=== PATIENT | female | born 1975 | race Caucasian/White ===

== ENCOUNTER → 2018-01-21 | Outpatient (CLI) | payer OTHER | LOC: MC.RAD 15:57 | DX: Z12.31 Encounter for screening mammogram for malignant neoplasm of breast (principal) ==

== ENCOUNTER → 2019-01-26 | Outpatient (CLI) | payer OTHER | LOC: COL.RAD 07:02 | DX: R10.9 Unspecified abdominal pain (principal); R11.0 Nausea; R19.7 Diarrhea, unspecified; R19.5 Other fecal abnormalities; R14.0 Abdominal distension (gaseous); R68.81 Early satiety ==

== ENCOUNTER → 2019-02-10 | Outpatient (CLI) | payer OTHER | LOC: MC.RAD 15:49 | DX: Z12.31 Encounter for screening mammogram for malignant neoplasm of breast (principal) ==

== ENCOUNTER → 2020-02-14 | Outpatient (CLI) | payer OTHER | LOC: MC.RAD 16:56 | DX: Z12.31 Encounter for screening mammogram for malignant neoplasm of breast (principal) ==